=== PATIENT | male | born 2000 | race American Indian/Alaskan Native ===

== ENCOUNTER 2019-12-20 08:48 | Emergency (ER) | payer OTHER ==
[~2019-12-20] VITALS: Ht 160 cm; Wt 54.4 kg
[~2019-12-20 08:48] MED LIST: PREDNISONE10 M1 PO; PROVENTIL HFA6.7 GM IH
== END 2019-12-20 09:40 | disposition home or self-care (01) ==
LOC: ED 08:48
DX: S49.91XA Unspecified injury of right shoulder and upper arm, initial encounter (principal); J45.909 Unspecified asthma, uncomplicated; F17.200 Nicotine dependence, unspecified, uncomplicated; Z88.8 Allergy status to other drugs, medicaments and biological substances; Z79.899 Other long term (current) drug therapy; V80.010A Animal-rider injured by fall from or being thrown from horse in noncollision accident, initial encounter; Y93.89 Activity, other specified; Y92.89 Other specified places as the place of occurrence of the external cause; Y99.8 Other external cause status

== ENCOUNTER 2020-05-26 09:20 | Emergency (ER) | payer OTHER ==
[~2020-05-26] VITALS: Ht 162.5 cm; Wt 59.0 kg
[2020-05-26] MEDS ORDERED: FLOVENT HFA10.6 GM INH (11:29)
[2020-05-26] MEDS ORDERED: PROVENTIL HFA6.7 GM INH (11:29)
== END 2020-05-26 11:46 | disposition home or self-care (01) ==
LOC: ED 09:20
DX: J45.901 Unspecified asthma with (acute) exacerbation (principal); Z88.8 Allergy status to other drugs, medicaments and biological substances; Z79.899 Other long term (current) drug therapy